=== PATIENT | female | born 1955 | race Caucasian/White ===

== ENCOUNTER 2019-01-04 09:59 | Day surgery (SDC) | payer MEDICARE, OTHER ==
[2019-01-03 15:50] VITALS: BMI 29.7
[~2019-01-04 09:59] MED LIST: Dexamethasone 20 MG/5 ML VIAL ONE; Glycopyrrolate 0.2 MG/ML 5 ML SYRINGE ONE; Lidocaine 1% PF 5 ML VIAL ONE; Ondansetron PF 4 MG/2 ML Vial ONE; PROPOFOL 200 MG/20 ML VIAL ONE; Rocuronium Bromide 10 MG/ML (10ML VIAL) ONE; ePHEDrine/0.9% NaCl/PF SYRINGE 50 mg/10 ml ONE
[2019-01-04] MEDS ORDERED: Fentanyl 250 MCG/5 ML VIAL ONE (10:28)
[2019-01-04] MEDS ORDERED: Oxymetazoline HCl 0.05% ( 15 ML ) ONE ×2 (10:34→11:26)
[2019-01-04 10:49] LABS: Hemoglobin 14.2 g/dL (12.0-16.0)
[2019-01-04 11:24] LABS: Anion Gap 12 mmol/L (10-20); BUN (Urea Nitrogen) 15 mg/dL (9.8-20.1); Calc. Creatinine Clearance 85 mL/min (70-130); Calcium 9.7 mg/dL (7.8-10.44); Carbon Dioxide 25 mmol/L (23-31); Chloride 111 mmol/L (98-107); Estimated GFR-MDRD 73; Glucose 110 mg/dL (80-115); Potassium 4.9 mmol/L (3.5-5.1); Sodium 143 mmol/L (136-145)
[2019-01-04] MEDS ORDERED: Bacitracin Zinc Ointment 30 gm TUBE ONE (11:26)
[2019-01-04] MEDS ORDERED: Lidocaine 1% w/Epinephrine 1:100K 20 ML VIAL ONE (11:26)
[2019-01-04] MEDS ORDERED: Fentanyl 100 MCG/2 ML VIAL ONE (12:31)
[2019-01-04] MEDS ORDERED: HYDROcodone/Acetaminophen 5/325 mg Tablet ONE (13:54)
--- NOTE | 2019-01-04 14:04 | OP ---
DATE OF PROCEDURE: 01/04/2019 PREOPERATIVE DIAGNOSES: 1. Closed nasal fracture. 2. Nasal septal hematoma. 3. Nasal septal deviation. 4. Bilateral inferior turbinate hypertrophy. POSTOPERATIVE DIAGNOSES: 1. Closed nasal fracture. 2. Nasal septal hematoma. 3. Nasal septal deviation. 4. Bilateral inferior turbinate hypertrophy. PROCEDURES PERFORMED: 1. Closed reduction of nasal fracture. 2. Nasal septoplasty. 3. Bilateral inferior turbinate submucosal resection. ESTIMATED BLOOD LOSS: 20 mL. COMPLICATIONS: None. ANESTHESIA: GETA. DESCRIPTION OF PROCEDURE: The patient was taken to operating room, placed supine on the table. General endotracheal anesthesia was obtained by the anesthesia staff. Tube was secured in the left lower lip. The patient was placed in a beach chair position and was prepped and draped for standard nasal procedure. Following this, 1% lidocaine with 1:100,000 epinephrine was injected into the nasal septum. The nasal septum, inferior turbinates and the nasal bones and the fracture lines were also marked and preinjected as well. Following this, a Ovi type incision was made in left nasal septum, fracture cartilage along with. Septal hematoma was removed and drained. Fortunately, there was a 2 cm robust caudal strut still intact. The remnant portions of the mid septum holding the deviation of fractures were removed. Following this, mucoperichondrial flaps were irrigated and then reapproximated using a gut stitch. Following this, inferior turbinates were punctured with a submucosal microdebrider and submucosal resection was performed of the anterior inferior portions of the inferior turbinates. Following this, the nasal bones were then elevated and remobilized using a large Herndon elevator and nasal bones were then reapproximated to the normal anatomical position. Following this, Huff splints were placed internally and secured and external Brandon splints were placed and secured. The patient tolerated the procedure well. Job ID: [id number]
== END 2019-01-04 15:30 | disposition home or self-care (01) ==
LOC: SDC 09:59
PROVIDERS: ATTEND Otolaryngology Plastic Surgery within the Head & Neck
PROC: 09BM8ZZ Excision of Nasal Septum, Via Natural or Artificial Opening Endoscopic (ICD-10-PCS; principal; 2019-01-04)
PROC: 09TL8ZZ Resection of Nasal Turbinate, Via Natural or Artificial Opening Endoscopic (ICD-10-PCS; 2019-01-04)
PROC: 0NSBXZZ Reposition Nasal Bone, External Approach (ICD-10-PCS; 2019-01-04)
DX: S02.2XXA Fracture of nasal bones, initial encounter for closed fracture (principal); J34.2 Deviated nasal septum; J34.3 Hypertrophy of nasal turbinates; J34.89 Other specified disorders of nose and nasal sinuses; E11.9 Type 2 diabetes mellitus without complications; Z79.84 Long term (current) use of oral hypoglycemic drugs; Z79.899 Other long term (current) drug therapy; Z91.040 Latex allergy status; Z91.048 Other nonmedicinal substance allergy status; W18.30XA Fall on same level, unspecified, initial encounter
CPT/HCPCS: 36415; 80048; 85014; 85018; 93005; 93010; J0131; J1100; J2001; J2405; J2704; J3010